=== PATIENT | female | born 2000 | race Caucasian/White ===

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

== ENCOUNTER 2021-01-26 15:30 | Emergency (ER) | payer OTHER ==
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
[2021-01-26 15:40] VITALS: BP 132/81; PULSE 98; RESP 18; TEMP 97.9
[2021-01-26] MEDS ORDERED: IBUPROFEN 600 MG TAB PO STA (15:40)
--- NOTE | 2021-01-26 16:03 | XR ---
EXAMINATION TYPE: XR ribs RT DATE OF EXAM: 01/26/2021 COMPARISON: Chest x-ray August 22, 2020 HISTORY: Right-sided rib pain after injury. TECHNIQUE: A frontal and oblique images right-sided ribs FINDINGS: No acute displaced right-sided rib fracture is seen. Overlying soft tissue is unremarkable. Visualized right lung is clear. IMPRESSION: As above.
== END 2021-01-26 16:15 | disposition home or self-care (01) ==
LOC: EC 15:30
DX: S46.911A Strain of unspecified muscle, fascia and tendon at shoulder and upper arm level, right arm, initial encounter (principal); S20.211A Contusion of right front wall of thorax, initial encounter; Z86.16 Personal history of COVID-19; W50.0XXA Accidental hit or strike by another person, initial encounter; Y92.238 Other place in hospital as the place of occurrence of the external cause; Y93.89 Activity, other specified; Y99.0 Civilian activity done for income or pay
CPT/HCPCS: 99283

== ENCOUNTER → 2022-01-06 | Outpatient (CLI) | payer BC ==
[2022-01-06 10:42] LABS: African American GFR (CKD) >90 (>60 ml/min/1.73 sqM); Blood Urea Nitrogen 13 mg/dL (7-17); Non-African American GFR(CKD) >90 (>60 ml/min/1.73 sqM)
--- NOTE | 2022-01-06 11:34 | CT ---
EXAMINATION TYPE: CT angio chest DATE OF EXAM: 01/06/2022 COMPARISON: None HISTORY: sob CT DLP: 873.2 mGycm CONTRAST: CT chest with contrast and 3D reconstruction with MIP imaging is performed with IV Contrast, patient injected with 100 mL of Isovue 370. Contrast-enhanced CT of the chest was performed through the course of the pulmonary arteries with maddie g and mediastinal window settings submitted. 3D reconstruction with MIP imaging was also performed. PULMONARY ARTERIES: The pulmonary arteries and their major tributaries are patent. I do not see jena dence for sizable filling defect to suggest pulmonary embolic process. LUNGS: The lungs are clear and free of infiltrate. No evidence for atelectasis. No pulmonary nodule or mass is detected. No pleural effusion. MEDIASTINUM: Thoracic aorta is of normal caliber.. The heart is not enlarged. No evidence for media stinal mass. No mediastinal lymph nodes greater than 1cm. HILAR STRUCTURES: No evidence for mass. No hilar lymph nodes greater than 1 cm. UPPER ABDOMEN: No significant abnormality is seen. IMPRESSION: 1. No evidence for Pulmonary embolism at this time.
== END | disposition home or self-care (01) ==
LOC: RADCTMAIN 09:54
PROVIDERS: ATTEND Family Medicine
DX: R07.9 Chest pain, unspecified (principal)
CPT/HCPCS: 82565; 84520; 71275; 36415; Q9967

== ENCOUNTER → 2022-03-08 | Outpatient (CLI) | payer BC ==
--- NOTE | 2022-03-08 17:13 | P.SLEEP ---
History of Present Illness DATE: 03/08/2022 CONSULTATION/NEW PATIENT EVALUATION HISTORY OF PRESENT ILLNESS/SLEEP-WAKE EVALUATION: 21-year-old lady had been evaluated in the sleep center for possible obstructive sleep apnea hypopnea syndrome and significant excessive daytime sleepiness. Patient had home sleep apnea test in in another institution about one months ago and results of the test are negative according to patient. SLEEP SCHEDULE: Usually sleep schedule on weekdays from 11 PM to 7 AM and on weekend from midnight until 8:30 AM. FALLING ASLEEP: No problems with falling asleep, although there is a TV in bedroom. DURING SLEEP: Patient usually sleeps on the side position with loud snoring and awakenings from sleep 3 times. Positive history of a lot of tosing and turning during the night. No history of hypnogogical hallucinations, sleep paralysis, or cataplexy. Positive history of bradycardia during sleep. DURING THE DAY/WAKE STATE: In the morning patient wake up tired, has difficulties to place attention, falling asleep during the day, has problems with memory, concentration, irritability. [place] sleepiness scale is signifi cantly increased to 14. Patient may take 1-2 naps a day in the middle of afternoon. PAST MEDICAL HISTORY: Syncopal spells, bradycardia, hypertension,. Diabetes, acid reflux, thyroid nodules. PAST SURGICAL HISTORY: None. MEDICATIONS: Metformin 500 mg once a day, metolazone. SOCIAL HISTORY: Negative for smoking, alcohol consumption occasional. FAMILY HISTORY: Hypertension, heart problems, epilepsy, stroke, asthma, sleep apnea, during the sleep. REVIEW OF SYSTEMS: Sleepiness, loud snoring, multiple awakenings from sleep. No fevers. No double vision. No recent chest pain. No shortness of breath. No abdominal pain. No bleeding episodes. No blood in urine. No seizure episodes. PHYSICAL EXAMINATION: GENERAL: A pleasant patient without any distress. VITAL SIGNS: BP 122/74 , HR 59 , RR 20 , weight 302.0 pounds, height 5 foot 7-1/4 inches, body mass index 47.0 . HEENT: PERRLA, EOMI. Evaluation of oropharynx showed tongue protrudes midline, position of soft palate Mallampati 2. NECK: Supple. No JVD. Thyroid is not palpable. 20-1/4 inches in circumference. LUNGS: Clear to percussion and to auscultation. Good air exchange. No wheezing or rhonchi. HEART: S1, S2 regular. No murmurs, gallops or rubs. ABDOMEN: Soft and nontender. Bowel sounds are present. No organomegaly appreciated. Obese EXTREMITIES: No clubbing or cyanosis. PRODUCT ASSEMBLER: Awake, alert, and oriented x3. Cranial nerves 2 to 7 intact. There is no fasciculation or atrophy noted. No focal deficits observed. ASSESSMENT: 1. Loud snoring, multiple awakenings from sleep, sleepiness, wide neck 20-1/4 inches in circumference. Obstructive sleep apnea hypopnea syndrome. 2. Significant excessive daytime sleepiness with [place] Sleepiness Scale 14 dictated necessity to include hypersomnia and narcolepsy in differential diagnosis especially because previous home sleep apnea test which was done in another institution was negative for obstructive sleep apnea hypopnea syndrome. 3. Obesity body mass index 47.0. 4. Preiabetes. 5 hypertension. 6 . Acid reflux. 7. History of syncopal spells. 8. History of bradycardia. 9 . History of thyroid nodule in childhood. PLAN: 1. Polysomnography for evaluation of patient's breathing during sleep and also to check for possibility of periodic limb movements. Continue with multiple sleep latency test after the polysomnogram if sleep study is negative for obstructive sleep apnea hypopnea syndrome. 2. CPAP/BiPAP titration if sleep study confirms obstructive sleep apnea- hypopnea syndrome. 3. Preferable position during sleep on the side. 4. No driving if patient feels any sleepiness. Patient is aware of civil and criminal liability for unsafe driving. 5. Sleep hygiene with regular sleep time for at least 7.5-8 hours. 6. Watching and losing weight. 7. Consider checking thyroid profile including T3.T4. Thank you very much for referring this patient for consultation. Sincerely, Jimmie Yoon MD, PhD, FAASM. Diplomat of [place] [employer], Sleep Medicine Board by [place] [employer] [place] [employer] [place] [facility] Past Medical History Past Medical History: No Reported History Additional Past Medical History / Comment(s): covid 08/11 History of Any Multi-Drug Resistant Organisms: None Reported Past Surgical History: No Surgical Hx Reported Past Psychological History: No Psychological Hx Reported Smoking Status: Never smoker Past Alcohol Use History: None Reported Past Drug Use History: None Reported Medications and Allergies Home Medications Medication Instructions Recorded Confirmed Type predniSONE 50 mg PO DAILY #5 tab 08/22/20 Rx Allergies Allergy/AdvReac Type Severity Reaction Status Date / Time No Known Allergies Allergy Verified 01/09/22 10:54 Sleep Note - Sleep Note Sleep Note: Temperature: Pulse Rate: Respiratory Rate: Blood Pressure: SpO2: Height: Weight: BMI: Neck Circumference:
== END | disposition home or self-care (01) ==
LOC: SLEEP 15:17
PROVIDERS: ATTEND Internal Medicine
DX: G47.33 Obstructive sleep apnea (adult) (pediatric) (principal); E66.9 Obesity, unspecified; Z68.42 Body mass index [BMI] 45.0-49.9, adult; I10 Essential (primary) hypertension; R73.03 Prediabetes; K21.9 Gastro-esophageal reflux disease without esophagitis; Z86.69 Personal history of other diseases of the nervous system and sense organs; Z86.79 Personal history of other diseases of the circulatory system; Z86.39 Personal history of other endocrine, nutritional and metabolic disease
CPT/HCPCS: 99211